=== PATIENT | male | born 1970 | race Caucasian/White ===

== ENCOUNTER 2018-02-09 14:04 | Emergency (ER) | payer OTHER ==
[~2018-02-09] VITALS: Ht 175.3 cm; Wt 94.6 kg
[2018-02-09] MEDS ORDERED: MOOD STABLIZER PO (14:17)
[2018-02-09] MEDS ORDERED: SEROQUEL 50 MG50 MG PO (14:28)
[2018-02-09 15:37] VITALS: BP 125/79
[2018-02-09] MEDS ORDERED: NABUMETONE 750750 M1 PO (15:51)
[2018-02-09] MEDS ORDERED: NORCO 5-325 TA1 EACH PO (15:51)
[2018-02-09] MEDS ORDERED: MEDROLDOSEPACK PO (15:51)
[2018-02-09] MEDS ORDERED: ROBAXIN 750 MG750 M1 PO (15:51)
== END 2018-02-09 16:02 | disposition home or self-care (01) ==
LOC: M.ERS 14:04
DX: S39.012A Strain of muscle, fascia and tendon of lower back, initial encounter (principal); X58.XXXA Exposure to other specified factors, initial encounter; Y93.89 Activity, other specified; Y92.89 Other specified places as the place of occurrence of the external cause; Y99.8 Other external cause status

== ENCOUNTER 2020-12-13 08:51 | Emergency (ER) | payer BC ==
[~2020-12-13] VITALS: Ht 175.3 cm; Wt 93.4 kg
[~2020-12-13 08:51] MED LIST: MEDROLDOSEPACK PO; MOOD STABLIZER PO; NABUMETONE 750750 M1 PO; NORCO 5-325 TA1 EACH PO; ROBAXIN 750 MG750 M1 PO; SEROQUEL 50 MG50 MG PO
[2020-12-13] MEDS ORDERED: DEXAMETHASONE 44 M1 PO (09:46)
[2020-12-13] MEDS ORDERED: VENTOLIN HFA 1818 GM INH (09:46)
[2020-12-13] MEDS ORDERED: ZPAK PO (09:46)
[2020-12-13] MEDS ORDERED: PERCOCET PO (10:20)
[2020-12-13] MEDS ORDERED: BACTRIM DS TAB1 EACH PO (10:20)
[2020-12-13] MEDS ORDERED: CEPHALEXIN500 MG PO (10:20)
[2020-12-13 10:46] VITALS: BP 118/78
--- NOTE | 2020-12-13 15:45 | EKG ---
[place] [address] ELECTROCARDIOGRAM REPORT Name: ANN MARIE FULLER Room: [facility]#: [id number] Admission: 12/13/20 Attend Phys: Discharge: 12/13/20 Date of : 74 Date of Service: 12/13/20930 Report #: [id number] THIS REPORT FOR: //name// 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
== END 2020-12-13 10:54 | disposition home or self-care (01) ==
LOC: M.ERS 08:51
DX: U07.1 COVID-19 (principal); Z88.1 Allergy status to other antibiotic agents